=== PATIENT | male | born 1945 | race Caucasian/White ===

== ENCOUNTER 2023-07-23 14:04 | Observation (INO) | payer MEDICARE, OTHER ==
[2023-07-23] MEDS: Albuterol 0.083% 2.5 MG/3 ML Neb Soln NEB ONE (14:29)
[2023-07-23] MEDS: Magnesium Sulfate/Water 2 GM in Premix Bag 1 BAG IV ONE (14:30)
[2023-07-23] MEDS: Sodium Chloride 0.9% 2.5 ML Syringe FLUSH PRN (14:30)
[2023-07-23] MEDS: Sodium Chloride 0.9% 10 ML Syringe FLUSH PRN (14:30)
[2023-07-23] MEDS: Dexamethasone 4 MG/ML SDV IVPUSH ONE (14:32)
[2023-07-23 14:35] LABS: BASOPHILS ABSOLUTE AUTO 0.05 K/uL (0.00-0.20); BASOPHILS PERCENT AUTO 0.4 % (0.0-1.0); EOSINOPHILS ABSOLUTE AUTO 0.13 K/uL (0.00-0.45); EOSINOPHILS PERCENT AUTO 1.1 % (0.0-6.0); HEMATOCRIT 40.7 % (42.0-52.0); HEMOGLOBIN 13.3 g/dL (14.0-18.0); IMMATURE GRAN ABSOLUTE AUTO 0.05 K/uL (0.00-0.05); IMMATURE GRAN PERCENT AUTO 0.4 % (0.0-0.4); LYMPHOCYTES ABSOLUTE AUTO 2.74 K/uL (1.00-4.80); LYMPHOCYTES PERCENT AUTO 22.3 % (24.0-44.0); MEAN CORPUSCULAR HGB CONC 32.7 g/dL (32.0-36.0); MEAN CORPUSCULAR VOLUME 88.9 fL (83.0-99.0); MEAN PLATELET VOLUME 11.9 fL (9.4-12.4); MONOCYTES ABSOLUTE AUTO 1.17 K/uL (0.00-0.80); MONOCYTES PERCENT AUTO 9.5 % (0.0-8.0); NEUTROPHILS ABSOLUTE AUTO 8.15 K/uL (1.80-7.70); NEUTROPHILS PERCENT AUTO 66.3 % (41.0-71.0); PLATELET COUNT,PLT 144 K/uL (150-400); RED BLOOD CELL COUNT 4.58 M/uL (4.52-5.90); WHITE BLOOD CELL COUNT,WBC 12.29 K/uL (3.9-11.3)
[2023-07-23 14:37] LABS: BASE EXCESS VENOUS 3.7 (-2.0-3.0); BICARBONATE,VENOUS 29 mEQ/mL (22-28); PCO2 VENOUS 48 mmHG (41-51); PO2 VENOUS < 30 mmHG (35-45)
[2023-07-23 14:49] LABS: INR 2.12 (0.86-1.11)
[2023-07-23 15:12] LABS: A/G RATIO 0.9 (0.9-1.6); ALBUMIN 3.5 g/dL (3.4-5.0); BILIRUBIN TOTAL 1.2 mg/dL (0.2-1.0); CALCIUM 8.9 mg/dL (8.5-10.1); CREATININE 1.3 mg/dL (0.8-1.3); EST CRCL DRUG DOSING (CG) 46.79 mL/min; MAGNESIUM 2.2 mg/dL (1.8-2.4); POTASSIUM,K 3.7 mmol/L (3.5-5.1); PROTEIN TOTAL,TP 7.6 g/dL (6.4-8.2)
[2023-07-23] MEDS: Potassium Chloride 10% 20 MEQ/15 ML Soln 15 ML UD Cup PO ONE (17:07)
[2023-07-23] MEDS: Furosemide 40 MG/4 ML VIAL IVPUSH ONE (17:07)
[2023-07-23] MEDS ORDERED: Glucagon,Human Recombinant 1 MG Vial IM PRN ×2 (20:41→22:04)
[2023-07-23] MEDS ORDERED: 50% Dextrose in Water 50 ML Syringe IVPUSH PRN ×2 (20:41→22:04)
[2023-07-23] MEDS: Metoprolol Succinate 25 MG Tab.ER PO SCH (22:27)
[2023-07-23] MEDS: Furosemide 40 MG/4 ML VIAL IVPUSH SCH (22:28)
[2023-07-23] MEDS: Insulin Aspart 100 Units/ML 3 ML Pen SUBCUT ONE (22:53)
[2023-07-23] MEDS: atorvaSTATin 40 MG Tab PO SCH (22:57)
[2023-07-23] MEDS: hydrALAZINE 25 MG Tab PO SCH (22:57)
[2023-07-24 05:49] LABS: BASOPHILS ABSOLUTE AUTO 0.06 K/uL (0.00-0.20); BASOPHILS PERCENT AUTO 0.6 % (0.0-1.0); EOSINOPHILS ABSOLUTE AUTO 0.11 K/uL (0.00-0.45); EOSINOPHILS PERCENT AUTO 1.1 % (0.0-6.0); HEMATOCRIT 37.1 % (42.0-52.0); HEMOGLOBIN 12.4 g/dL (14.0-18.0); IMMATURE GRAN ABSOLUTE AUTO 0.03 K/uL (0.00-0.05); IMMATURE GRAN PERCENT AUTO 0.3 % (0.0-0.4); LYMPHOCYTES ABSOLUTE AUTO 1.71 K/uL (1.00-4.80); LYMPHOCYTES PERCENT AUTO 17.5 % (24.0-44.0); MEAN CORPUSCULAR HEMOGLOBIN 29.1 pg (28.0-32.0); MEAN CORPUSCULAR HGB CONC 33.4 g/dL (32.0-36.0); MEAN CORPUSCULAR VOLUME 87.1 fL (83.0-99.0); MEAN PLATELET VOLUME 11.3 fL (9.4-12.4); MONOCYTES ABSOLUTE AUTO 1.11 K/uL (0.00-0.80); MONOCYTES PERCENT AUTO 11.4 % (0.0-8.0); NEUTROPHILS ABSOLUTE AUTO 6.73 K/uL (1.80-7.70); NEUTROPHILS PERCENT AUTO 69.1 % (41.0-71.0); PLATELET COUNT,PLT 142 K/uL (150-400); RED BLOOD CELL COUNT 4.26 M/uL (4.52-5.90); WHITE BLOOD CELL COUNT,WBC 9.75 K/uL (3.9-11.3)
[2023-07-24 06:04] LABS: CALCIUM 8.8 mg/dL (8.5-10.1); CREATININE 1.2 mg/dL (0.8-1.3); EST CRCL DRUG DOSING (CG) 52.29 mL/min; POTASSIUM,K 2.9 mmol/L (3.5-5.1)
[2023-07-24] MEDS: Insulin Aspart 100 Units/ML 3 ML Pen SUBCUT SCH (07:44)
[2023-07-24] MEDS: INSULIN ISOPHANE NPH HUMAN 100 UNIT/ML SUBCUT SCH (07:45)
[2023-07-24] MEDS: Metolazone 5 MG Tab PO SCH (07:50)
[2023-07-24] MEDS: Sertraline 100 MG Tab PO SCH (09:00)
[2023-07-24] MEDS: Potassium Chloride 20 MEQ Tab.ER PO ONE ×2 (11:51→18:13)
[2023-07-24 17:24] LABS: CALCIUM 8.9 mg/dL (8.5-10.1); CARBON DIOXIDE,CO2 32.9 mmol/L (21.0-32.0); CREATININE 1.3 mg/dL (0.8-1.3); EST CRCL DRUG DOSING (CG) 48.27 mL/min; POTASSIUM,K 3.1 mmol/L (3.5-5.1)
[2023-07-24] MEDS: Warfarin 5 MG, Warfarin 2.5 MG PO SCH (21:03)
[2023-07-24] MEDS: Warfarin Sliding Scale PO SCH (22:04)
[2023-07-25 05:35] LABS: HEMATOCRIT 40.2 % (42.0-52.0); HEMOGLOBIN 12.9 g/dL (14.0-18.0); MEAN CORPUSCULAR HEMOGLOBIN 28.4 pg (28.0-32.0); MEAN CORPUSCULAR HGB CONC 32.1 g/dL (32.0-36.0); MEAN CORPUSCULAR VOLUME 88.4 fL (83.0-99.0); MEAN PLATELET VOLUME 12.2 fL (9.4-12.4); PLATELET COUNT,PLT 130 K/uL (150-400); RED BLOOD CELL COUNT 4.55 M/uL (4.52-5.90); WHITE BLOOD CELL COUNT,WBC 8.86 K/uL (3.9-11.3)
[2023-07-25 05:47] LABS: INR 2.3 (0.86-1.11)
[2023-07-25 05:55] LABS: EOSINOPHILS ABSOLUTE MAN 0.09 K/uL (0.00-0.45); EOSINOPHILS PERCENT MAN 1 % (0-6); LYMPHOCYTES ABSOLUTE MAN 2.39 K/uL (1.00-4.80); LYMPHOCYTES PERCENT MAN 27 % (24-44); MONOCYTES ABSOLUTE MAN 0.97 K/uL (0.00-0.80); MONOCYTES PERCENT MAN 11 % (0-8); SEG NEUTROPHILS PERCENT MAN 61 % (41-71)
[2023-07-25 05:56] LABS: CALCIUM 8.8 mg/dL (8.5-10.1); CARBON DIOXIDE,CO2 30.4 mmol/L (21.0-32.0); CREATININE 1.3 mg/dL (0.8-1.3); EST CRCL DRUG DOSING (CG) 48.27 mL/min; MAGNESIUM 1.7 mg/dL (1.8-2.4); POTASSIUM,K 3.1 mmol/L (3.5-5.1)
[2023-07-25] MEDS: UMECLIDINIUM BROMIDE INH SCH (08:56)
[2023-07-25] MEDS ORDERED: Magnesium Sulfate/Water 2 GM/50 ML Premix Bag IV ONE (08:58)
[2023-07-25] MEDS ORDERED: BUDESONIDE INH SCH (09:00)
[2023-07-25] MEDS ORDERED: FORMOTEROL FUMARATE INH SCH (09:00)
[2023-07-25] MEDS: BUDESONIDE INH SCH (09:02)
[2023-07-25] MEDS: FORMOTEROL FUMARATE INH SCH (09:02)
[2023-07-25] MEDS: Potassium Chloride 20 MEQ Tab.ER PO ONE (09:05)
[2023-07-25] MEDS: Magnesium Sulfate/Water 2 GM in Premix Bag 1 BAG IV ONE (09:05)
[2023-07-25] MEDS ORDERED: WARFARIN PO SCH (21:00)
== END 2023-07-25 11:20 | disposition home or self-care (01) ==
LOC: MW.ED 14:04 → EDBD 14:04 → MW.MS 17:08
PROVIDERS: ADMIT Internal Medicine; ATTEND Internal Medicine
DX: I11.0 Hypertensive heart disease with heart failure (principal); I50.23 Acute on chronic systolic (congestive) heart failure; J44.1 Chronic obstructive pulmonary disease with (acute) exacerbation; I48.91 Unspecified atrial fibrillation; E78.00 Pure hypercholesterolemia, unspecified; E11.9 Type 2 diabetes mellitus without complications; E66.9 Obesity, unspecified; Z88.5 Allergy status to narcotic agent; Z88.8 Allergy status to other drugs, medicaments and biological substances; Z79.899 Other long term (current) drug therapy; Z79.4 Long term (current) use of insulin; Z79.01 Long term (current) use of anticoagulants; Z87.891 Personal history of nicotine dependence; Z20.822 Contact with and (suspected) exposure to COVID-19; Z68.30 Body mass index [BMI] 30.0-30.9, adult
CPT/HCPCS: 36415; 71045; 80048; 80053; 82803; 82947; 83690; 83735; 83880; 84484; 85025; 85610; 93005; 94640; 96365; 96375; 99285; A9270; J1815; J1940; J3475; J3490; U0002; 93010; 96366; 96376; 99284; G0378; J1100; J7620-GY